=== PATIENT | male | born 1960 | race Caucasian/White ===

== ENCOUNTER 2018-10-12 00:11 | Inpatient (IN) ==
[2018-10-12] MEDS ORDERED: MoRPHine SULFATE 10 MG/ML CARP/VIAL IV STA (00:42)
[2018-10-12] MEDS ORDERED: ONDANSETRON INJ 2 MG/ML 2 ML VIAL IV STA (00:42)
[2018-10-12] MEDS ORDERED: SODIUM CHLORIDE 0.9% 1000ML 1,000 ML IV SCH (00:45)
[2018-10-12 00:55] LABS: Basophils # (auto) 0.05 K/uL (0-0.2); Basophils % (auto) 0.3 %; Eosinophils % (auto) 1.4 %; Hematocrit (blood only) 41.4 % (42-52); Hemoglobin 14.1 g/dL (14.0-18.0); Immature Granulocytes # (auto) 0.06 K/uL (0.00-0.02); Immature Granulocytes % (auto) 0.4 %; Lymphocytes # (auto) 2.67 K/uL (1.2-3.4); Lymphocytes % (auto) 18.7 %; Mean Corpuscular Hgb Conc 34.1 g/dL (32-36); Mean Corpuscular Volume 84.1 fL (80-100); Mean Platelet Volume 9.3 fL (7.4-10.4); Monocytes # (auto) 0.98 K/uL (0.11-0.59); Monocytes % (auto) 6.8 %; Neutrophils # (auto) 10.35 K/uL (1.4-6.5); Neutrophils % (auto) 72.4 %; Platelet Count 274 K/uL (130-400); RDW Coefficient of Variation 14.6 % (11.5-14.5); Red Blood Count 4.92 M/uL (4.7-6.1); White Blood Count 14.31 K/uL (4.8-10.8)
[2018-10-12 01:02] LABS: Appearance Urine Clear (Clear); Bacteria Urine Automated Negative (Negative); Bilirubin Urine Negative (Negative); Blood Urine 3+ (Negative); Cast Urine Automated 0 /lpf (0-5); Color Urine Yellow; Epithelial Cell Urine Auto 0-5 /lpf (0-5); Glucose Urine UA Negative (Negative); Ketones Urine Negative (Negative); Leukocyte Esterase Urine Negative (Negative); Nitrite Urine Negative (Negative); Protein Urine Negative (Negative); RBC Urine Automated >30 /hpf (0-4); Specific Gravity Urine 1.017 (1.000-1.030); Urobilinogen Urine Negative (Negative); pH Urine 7.5 (4.5-7.5)
[2018-10-12 01:07] LABS: Albumin Level 3.6 gm/dl (3.4-5.0); BUN Creatinine Ratio 14.5 (10-20); Creatinine Clr Calc Pharmacy 59.4 ml/min; Est GFR (Non-African American) 61.3; Potassium 3.8 mmol/L (3.5-5.1)
[2018-10-12 01:09] LABS: Bilirubin,Total 0.2 mg/dl (0.2-1); Globulin 3.6 gm/dl (2.5-4.0); Total Protein 7.2 gm/dl (6.4-8.2)
--- NOTE | 2018-10-12 01:22 | Emergency Department Note ---
History of Present Illness General Chief complaint: Kidney Stone Stated complaint: kidney stone Source: patient Mode of arrival: ambulatory Limitations: no limitations History of Present Illness Maximum Pain Intensity: 10 This patient is a 58-year-old male who presents to the emergency department complaining of right flank pain. The patient states that he was seen here 2 days ago and was diagnosed with a right-sided kidney stone. He states that since then, he has been unable to keep his pain and nausea medications down. He states that his pain is worse now than it was when he was initially seen here. He rates his discomfort a 10/10. He states it is worse with palpation of the right kidney area. He has had some increased urgency and frequency of urination. He states that he has been urinating small amounts very frequently. He has not had any fevers, but does note that he has had some sweating and hot flashes. He does have a history of kidney stones and has seen Dr. Lance in the past. Home Medications Home Medications Medication Instructions Recorded Confirmed Type hydrocodone-acetaminophen 1 tab PO Q6H PRN #10 tab 10/09/18 10/12/18 Rx tamsulosin [Flomax] 0.4 mg PO DAILY #10 cap 10/09/18 10/12/18 Rx Allergies Allergy/AdvReac Type Severity Reaction Status Date / Time No Known Allergies Allergy Unverified 10/12/18 02:27 Past Med/Surg History Medical History Kidney stone Heart murmur Recent findings. Denies having symptoms from it History of palpitations Knee arthropathy Surgical History H/O lithotripsy History of ankle surgery S/P arthroscopic knee surgery Left Family History Other Family history of kidney stones Social History Preferred Language: Irish Communication Ability: Effective Contract Management Specialist Required: No Beliefs That Will Affect Care: None Current Living Situation: Spouse Other Information That Helps Us Care for You: No Feels Safe at Home: Yes Safety Concerns: Feels Safe At This Time Smoking Status: Current every day smoker Tobacco Type: cigarettes Cigarettes Per Day: 1/2 ppd x 40 years Do You Dip or Chew Tobacco: No Smoking End Date: Quit 10 years ago Tobacco Cessation Education Requested by Patient: No Hx Alcohol Use: No Hx Substance Use: No Review of Systems A total of 10 systems reviewed and were otherwise negative Physical Exam Vital Signs Vital Signs - 24 hr 10/12/18 03:50 10/12/18 04:35 10/12/18 05:20 Temperature 37.0 C Temperature Source Oral Pulse Rate 79 Pulse Rate [Apical] Pulse Rate [Bilateral Finger] 61 55 L Pulse Rate [Left Finger] Pulse Rhythm [Apical] Pulse Rhythm [Bilateral Finger] Regular Pulse Rhythm [Left Finger] Pulse Strength [Left Finger] Respiratory Rate 16 18 16 Respiratory Effort / Characteristics Non-Labored Non-Labored Respiratory Depth Normal Normal Respiratory Pattern Blood Pressure 140/49 L Blood Pressure [Left Arm] Blood Pressure [Right Arm] 146/85 H 149/82 H Blood Pressure Mean [Left Arm] Blood Pressure Mean [Right Arm] 105 104 Blood Pressure Position [Left Arm] Blood Pressure Position [Right Arm] Pulse Oximetry 94 95 98 Oxygen Delivery Method Room Air Room Air Oxygen Flow Rate 10/12/18 05:39 10/12/18 07:51 10/12/18 10:23 Temperature 36.5 C 36.5 C 36.7 C Temperature Source Oral Oral Temporal Artery Scan Pulse Rate Pulse Rate [Apical] 72 Pulse Rate [Bilateral Finger] Pulse Rate [Left Finger] 57 L 61 Pulse Rhythm [Apical] Regular Pulse Rhythm [Bilateral Finger] Pulse Rhythm [Left Finger] Pulse Strength [Left Finger] Respiratory Rate 18 16 16 Respiratory Effort / Characteristics Non-Labored Spontaneous Non-Labored Spontaneous Respiratory Depth Normal Normal Normal Respiratory Pattern Regular Regular Blood Pressure Blood Pressure [Left Arm] 134/79 Blood Pressure [Right Arm] 155/90 H 137/83 Blood Pressure Mean [Left Arm] 97 Blood Pressure Mean [Right Arm] 111 101 Blood Pressure Position [Left Arm] Semi-fowlers Blood Pressure Position [Right Arm] Lying Lying Pulse Oximetry 96 95 99 Oxygen Delivery Method Room Air Room Air Oxymask Oxygen Flow Rate 6 10/12/18 10:30 10/12/18 10:40 10/12/18 10:50 Temperature 36.7 C Temperature Source Temporal Artery Scan Pulse Rate Pulse Rate [Apical] 65 74 68 Pulse Rate [Bilateral Finger] Pulse Rate [Left Finger] Pulse Rhythm [Apical] Regular Regular Regular Pulse Rhythm [Bilateral Finger] Pulse Rhythm [Left Finger] Pulse Strength [Left Finger] Respiratory Rate 16 15 20 Respiratory Effort / Characteristics Non-Labored Spontaneous Non-Labored Spontaneous Non-Labored Spontaneous Respiratory Depth Normal Normal Normal Respiratory Pattern Regular Regular Regular Blood Pressure Blood Pressure [Left Arm] 136/97 136/84 144/89 H Blood Pressure [Right Arm] Blood Pressure Mean [Left Arm] 110 101 107 Blood Pressure Mean [Right Arm] Blood Pressure Position [Left Arm] Semi-fowlers Semi-fowlers Semi-fowlers Blood Pressure Position [Right Arm] Pulse Oximetry 96 99 93 Oxygen Delivery Method Oxymask Oxymask Nasal Cannula Oxygen Flow Rate 6 6 2 10/12/18 11:10 10/12/18 12:22 10/12/18 13:09 Temperature 36.8 C 36.8 C Temperature Source Oral Oral Pulse Rate Pulse Rate [Apical] Pulse Rate [Bilateral Finger] Pulse Rate [Left Finger] 58 L 60 58 L Pulse Rhythm [Apical] Pulse Rhythm [Bilateral Finger] Pulse Rhythm [Left Finger] Regular Pulse Strength [Left Finger] Normal Respiratory Rate 16 18 18 Respiratory Effort / Characteristics Non-Labored Respiratory Depth Normal Respiratory Pattern Regular Blood Pressure Blood Pressure [Left Arm] 143/78 H 155/83 H 157/87 H Blood Pressure [Right Arm] Blood Pressure Mean [Left Arm] 99 107 110 Blood Pressure Mean [Right Arm] Blood Pressure Position [Left Arm] Lying Blood Pressure Position [Right Arm] Pulse Oximetry 93 96 96 Oxygen Delivery Method Nasal Cannula Room Air Oxygen Flow Rate 2 10/12/18 14:12 Temperature 36.8 C Temperature Source Pulse Rate Pulse Rate [Apical] Pulse Rate [Bilateral Finger] Pulse Rate [Left Finger] 58 L Pulse Rhythm [Apical] Pulse Rhythm [Bilateral Finger] Pulse Rhythm [Left Finger] Pulse Strength [Left Finger] Respiratory Rate 18 Respiratory Effort / Characteristics Respiratory Depth Respiratory Pattern Blood Pressure Blood Pressure [Left Arm] 157/87 H Blood Pressure [Right Arm] Blood Pressure Mean [Left Arm] Blood Pressure Mean [Right Arm] Blood Pressure Position [Left Arm] Blood Pressure Position [Right Arm] Pulse Oximetry 96 Oxygen Delivery Method Oxygen Flow Rate VITALS: Vitals are noted on the nurse's note and reviewed by myself. Vital signs stable. GENERAL: This is a 58-year-old male, in no acute distress, nondiaphoretic, well- developed well-nourished. SKIN: The skin was without rashes. EYES: Pupils equal round and reactive to light and accommodation. MOUTH: Mucous membranes moist. Tonsils are not enlarged. Pharynx without erythema or exudate. NECK: Supple without nuchal rigidity. No lymphadenopathy. HEART: Regular rate and rhythm. Grade 2/6 systolic murmur. LUNGS: Clear to auscultation bilaterally without wheezes, rales or rhonchi. No retractions or accessory muscle use. ABDOMEN: Positive bowel sounds x 4. Soft, nondistended. There is no abdominal tenderness to palpation. Right CVA tenderness. NEURO: Patient was alert and oriented to person place and time. Course Reevaluation(s) Reevaluation #1: Patient was reevaluated and states that his pain is starting to return. An additional dose of pain medicine was ordered for the patient. He is agreeable to admission. Administered Medications Discontinued Medications Hydromorphone HCl (Dilaudid) 0.5 mg IV NOW STA Stop: 10/12/18 02:25 Last Admin: 10/12/18 02:30 Dose: 0.5 mg Documented by: [id number] Hydromorphone HCl (Dilaudid) 0.5 mg IV Q4H PRN PRN Reason: Pain Stop: 10/26/18 05:27 Last Admin: 10/12/18 12:19 Dose: 0.5 mg Documented by: [id number] Admin: 10/12/18 07:41 Dose: 0.5 mg Documented by: [id number] Sodium Chloride (Nss 1000ml) 1,000 mls @ 999 mls/hr IV .Q1H1M POLINA Stop: 10/12/18 01:45 Last Infusion: 10/12/18 01:58 Dose: 0 mls/hr Documented by: [id number] Admin: 10/12/18 00:56 Dose: 999 mls/hr Documented by: [id number] Lactated Ringer's (Lr) 1,000 mls @ 100 mls/hr IV .Q10H POLINA Stop: 11/11/18 05:27 Last Admin: 10/12/18 05:53 Dose: 100 mls/hr Documented by: [id number] Cefazolin Sodium (Ancef 2000mg) 2,000 mg in 15 mls @ 3.75 mls/min IV ONCE ONE Stop: 10/12/18 09:59 Last Admin: 10/12/18 09:51 Dose: 3.75 mls/min Documented by: [id number] Iothalamate Meglumine (Cysto-Conray Ii) 5 ml INSTIL ONCE POLINA Stop: 11/11/18 10:14 Last Admin: 10/12/18 09:54 Dose: 5 ml Documented by: [id number] Morphine Sulfate (Morphine Sulfate) 6 mg IV NOW STA Stop: 10/12/18 00:43 Last Admin: 10/12/18 00:56 Dose: 6 mg Documented by: [id number] Ondansetron HCl (Zofran) 4 mg IV NOW STA Stop: 10/12/18 00:43 Last Admin: 10/12/18 00:56 Dose: 4 mg Documented by: [id number] Medical Decision Making Differential Diagnosis Differential diagnosis includes kidney stone, pyelonephritis, infected stone, acute kidney injury, among others. Medical Records Attestation: I reviewed the patient's medical records. Home Medications Current Medication List: was personally reviewed by me Laboratory Data Attestation: I reviewed the patient's lab results. Result diagrams: 10/12/18 00:37 10/12/18 00:37 Lab Results 10/12/18 10/12/18 10/12/18 Range/Units 00:37 00:37 00:37 WBC 14.31 H (4.8-10.8) K/uL RBC 4.92 (4.7-6.1) M/uL Hgb 14.1 (14.0-18.0) g/dL Hct 41.4 L (42-52) % MCV 84.1 (80-100) fL MCH 28.7 (25-34) pg MCHC 34.1 (32-36) g/dL RDW Std Deviation 45.0 (36.4-46.3) fL RDW Coeff of [place] 14.6 H (11.5-14.5) % Plt Count 274 (130-400) K/uL MPV 9.3 (7.4-10.4) fL Immature Gran % (Auto) 0.4 % Neut % (Auto) 72.4 % Lymph % (Auto) 18.7 % [place] % (Auto) 6.8 % Eos % (Auto) 1.4 % Baso % (Auto) 0.3 % Immature Gran # (Auto) 0.06 H (0.00-0.02) K/uL Neut # (Auto) 10.35 H (1.4-6.5) K/uL Lymph # (Auto) 2.67 (1.2-3.4) K/uL [place] # (Auto) 0.98 H (0.11-0.59) K/uL Eos # (Auto) 0.20 (0-0.5) K/uL Baso # (Auto) 0.05 (0-0.2) K/uL Sodium 136 (136-145) mmol/L Potassium 3.8 (3.5-5.1) mmol/L Chloride 106 (98-107) mmol/L Carbon Dioxide 27 (21-32) mmol/L Anion Gap 3.0 (3-11) BUN 19 H (7-18) mg/dl Creatinine 1.28 (0.6-1.4) mg/dl Est Cr Clr Drug Dosing 59.4 ml/min Est GFR ( Amer) 71.0 Est GFR (Non-Af Amer) 61.3 BUN/Creatinine Ratio 14.5 (10-20) Glucose 126 H (70-99) mg/dl Calcium 9.0 (8.5-10.1) mg/dl Total Bilirubin 0.2 (0.2-1) mg/dl AST 13 L (15-37) U/L ALT 17 (12-78) U/L Alkaline Phosphatase 87 (45-117) U/L Total Protein 7.2 (6.4-8.2) gm/dl Albumin 3.6 (3.4-5.0) gm/dl Globulin 3.6 (2.5-4.0) gm/dl Albumin/Globulin Ratio 1.0 (0.9-2) Urine Color Yellow Urine Appearance Clear (Clear) Urine pH 7.5 (4.5-7.5) Ur Specific [place] 1.017 (1.000-1.030) Urine Protein Negative (Negative) Urine Glucose (UA) Negative (Negative) Urine Ketones Negative (Negative) Urine Blood 3+ H (Negative) Urine Nitrite Negative (Negative) Urine Bilirubin Negative (Negative) Urine Urobilinogen Negative (Negative) Ur Leukocyte Esterase Negative (Negative) Urine WBC (Auto) 1-5 (0-5) /hpf Urine RBC (Auto) >30 H (0-4) /hpf U Hyaline Cast (Auto) 0 (0-5) /lpf U Epithel Cells (Auto) 0-5 (0-5) /lpf Urine Bacteria (Auto) Negative (Negative) Imaging Data Attestation: I personally reviewed and interpreted this imaging study as follows: Radiologist's Impression: US RENAL: Impression: Hydronephrosis of the right kidney is not significantly changed from comparison CT abdomen and pelvis 10/09/2018 given differences in technique. Right renal calculus measuring up to 5 mm. Small right renal cysts. Urinary bladder is decompressed and therefore not well evaluated. Radiologist: Guillaume Beasley MD Blood Pressure Blood Pressure Findings: Elevated blood pressure Blood Pressure Disposition: elevated BP felt to be situational MDM Narrative This patient is a 58-year-old male who presents to the emergency department complaining of persistent pain from a kidney stone. Patient has not been able to keep any of his medication down at home. Ultrasound was performed and shows unchanged hydronephrosis. There is no evidence of infection in the urine. Patient does have a leukocytosis of 14,000 which may be secondary to vomiting or the stress of the situation. Patient was given IV pain medications and fluids in the emergency department. As the patient has not been able to tolerate his symptoms at home, I do feel it is reasonable to admit him for evaluation and care. The patient was agreeable to this. The case was discussed with the [facility] service for admission/observation. Impression & Plan Ureterolithiasis Discharge Plan Visit Data *Final* Discharge Date/Time: 10/12/18 05:20 Chief Complaint: Kidney Stone Stated Complaint: kidney stone ED Provider: Zaki Suarez ED Midlevel Provider: Michelle Duarte Discharge Problem: Ureterolithiasis Patient Disposition: Admitted As Inpatient Discharge Instructions Interventions: ED Discharge Assessment Last Done: 10/12/18 05:20
[2018-10-12] MEDS ORDERED: HYDROmorphone INJ 0.5 MG/0.5 ML SYR IV STA (02:24)
--- NOTE | 2018-10-12 04:14 | History & Physical Report ---
Date of Service October 12, 2018 Assessment & Plan (1) Ureterolithiasis: 58-year-old male was admitted on 12 September 2017 for right flank pain and a known right ureteral stone. Right ureterolithiasis: Uncontrolled pain as well as nausea and vomiting from the same. CT a/p non-con on 02May noted a obstructing calculus in the right UP junction along with mild right hydroureteronephrosis. 05May renal u/s (prelim read) noted renal calculus measuring up to 5 mm, small right renal cyst, with hydronephrosis not significantly changed from CT scan. - In ED, afebrile, not tachycardic, but WBC 14. UA notes RBCs without nitrates or significant WBCs. Treated with morphine and then Dilaudid, Zofran, and normal saline IVF. - Consulted urology. Will continue Dilaudid and Zofran (both as needed) for pain & nausea control. Continue IVF. Held home Flomax while NPO. Elevated creatinine: Admit Cr 1.28, up from Cr 1.08 three days prior. Present BUN 19. Provided IVF, recommend monitoring. Elevated blood pressure: As high as 183/90. Outside of his flank pain, no obvious evidence of hypertensive emergency. Patient denies any history of hypertension. Recommended monitoring and outpatient evaluation for same. Diastolic heart murmur: Unclear time of onset, however patient says he was told years ago that one of his valves does not work quite properly. Occasionally gets feeling of fluttering. EKG two days ago was sinus bradycardia, rate 59. - Ordered echocardiogram for further evaluation. Code status: Full code. Diet: N.p.o. in case of procedure later today. DVT prophy: SCDs. PT/OT: Deferred. Disbo: Admit to [facility]. (2) Elevated serum creatinine: (3) Elevated blood pressure reading: (4) Diastolic murmur: History of Present Illness Primary Care Provider: CHARLIE Christian 58-year-old male returns to the emergency department complaining of ongoing right flank pain. Of note, he was seen in the emergency department two days prior where he was diagnosed with a right-sided kidney stone by CT scan. He states that his pain is been uncontrolled at home, 10 out of 10 on pain scale on arrival, as well as some nausea and vomiting preventing him from taking pain medicine. Notes concurrent urinary urgency and increased frequency. No known fevers. He denies any anterior abdominal pain, pelvic pain, or other acute concerns. On discussion of his heart murmur, he says he was diagnosed with this for the first time two days ago. He does say that he saw cardiology (Dr. Soria) many years ago and was told that he had a valve problem. Per the patient's recolle ction, he was offered medication to help with this but he (the patient) declined at that time. He says that he does not routinely have any chest pain or shortness of breath but that on heavy exertion he does have a little bit of chest discomfort. He also notes he has gotten the feeling of fluttering for years now but has not sought interval evaluation. --- Past medical history includes prior kidney stones (perhaps six), possible cardiac valvular disease. --- Past surgical history includes lithotripsy around 2012. --- Social history includes smoking a little over 1/2 pack/day for 40 years. Denies recent alcohol use. Lives at home with his and daughter. Allergies Allergy/AdvReac Type Severity Reaction Status Date / Time No Known Allergies Allergy Unverified 10/12/18 02:27 Home Medications Home Medications Medication Instructions Recorded Confirmed Type hydrocodone-acetaminophen 1 tab PO Q6H PRN #10 tab 10/09/18 10/12/18 Rx tamsulosin [Flomax] 0.4 mg PO DAILY #10 cap 10/09/18 10/12/18 Rx Past Med/Surg History Medical History Kidney stone Heart murmur Recent findings. Denies having symptoms from it History of palpitations Knee arthropathy Surgical History H/O lithotripsy History of ankle surgery S/P arthroscopic knee surgery Left Family History Other Family history of kidney stones Social History Preferred Language: Guamanian Communication Ability: Effective Pleasure Craft Sailor Required: No Beliefs That Will Affect Care: None Current Living Situation: Spouse Other Information That Helps Us Care for You: No Feels Safe at Home: Yes Safety Concerns: Feels Safe At This Time Smoking Status: Current every day smoker Tobacco Type: cigarettes Cigarettes Per Day: 1/2 ppd x 40 years Do You Dip or Chew Tobacco: No Smoking End Date: Quit 10 years ago Tobacco Cessation Education Requested by Patient: No Hx Alcohol Use: No Hx Substance Use: No Review of Systems Review of Systems: Constitutional: Denies fevers, chills, focal weakness Eyes: Denies any visual loss or diplopia ENT: Denies any ear/nose/throat pain or difficulty speaking or swallowing Respiratory: Denies any dyspnea, cough, hemoptysis Cardiovascular: Denies any chest pain or feeling of edema Gastrointestinal: Denies any abdominal pain or diarrhea Musculoskeletal: Denies any acute extremity pains, myalgias, or focal weakness Skin: Denies any known acute rashes or lesions Neuro: Denies any headache, acute focal weakness or numbness, or difficulties with speech or swallow. Psych: Denies any recent depression or anxiety Endocrine: Denies any heat or cold intolerance. Physical Exam Physical Exam: GENERAL: Awake, alert, well-appearing, in no acute distress HENT: Normocephalic, atraumatic. EYES: Normal conjunctiva. Sclera non-icteric. NECK: Inspection normal. Non-tender. Supple and full ROM. CARDIAC: +S1S2 RRR, 3/6 holo-diastolic murmur. RESPIRATORY: Clear to auscultation. No wheezes or rales. Normal respiratory effort. GI: +BS, soft, non-distended. No tenderness to anterior abdominal palpation. No rebound or guarding. Positive right-sided CVA tenderness. EXTREMITIES: No pedal edema or calf tenderness. Moving all extremities naturally and easily. NEURO: No gross neuro deficits. Results & Data Vital Signs (Past 12 Hours) Vital Signs Temp Pulse Pulse Resp BP BP Pulse Ox 10/12/18 03:50 61 16 146/85 H 94 10/12/18 01:57 67 19 166/81 H 94 10/12/18 00:58 60 16 170/98 H 98 10/12/18 00:13 36.8 C 86 22 183/90 H 96 Laboratory Results 10/12/18 10/12/18 10/12/18 Range/Units 00:37 00:37 00:37 WBC 14.31 H (4.8-10.8) K/uL RBC 4.92 (4.7-6.1) M/uL Hgb 14.1 (14.0-18.0) g/dL Hct 41.4 L (42-52) % MCV 84.1 (80-100) fL MCH 28.7 (25-34) pg MCHC 34.1 (32-36) g/dL RDW Std Deviation 45.0 (36.4-46.3) fL RDW Coeff of [place] 14.6 H (11.5-14.5) % Plt Count 274 (130-400) K/uL MPV 9.3 (7.4-10.4) fL Immature Gran % (Auto) 0.4 % Neut % (Auto) 72.4 % Lymph % (Auto) 18.7 % [place] % (Auto) 6.8 % Eos % (Auto) 1.4 % Baso % (Auto) 0.3 % Immature Gran # (Auto) 0.06 H (0.00-0.02) K/uL Neut # (Auto) 10.35 H (1.4-6.5) K/uL Lymph # (Auto) 2.67 (1.2-3.4) K/uL [place] # (Auto) 0.98 H (0.11-0.59) K/uL Eos # (Auto) 0.20 (0-0.5) K/uL Baso # (Auto) 0.05 (0-0.2) K/uL Sodium 136 (136-145) mmol/L Potassium 3.8 (3.5-5.1) mmol/L Chloride 106 (98-107) mmol/L Carbon Dioxide 27 (21-32) mmol/L Anion Gap 3.0 (3-11) BUN 19 H (7-18) mg/dl Creatinine 1.28 (0.6-1.4) mg/dl Est Cr Clr Drug Dosing 59.4 ml/min Est GFR ( Amer) 71.0 Est GFR (Non-Af Amer) 61.3 BUN/Creatinine Ratio 14.5 (10-20) Glucose 126 H (70-99) mg/dl Calcium 9.0 (8.5-10.1) mg/dl Total Bilirubin 0.2 (0.2-1) mg/dl AST 13 L (15-37) U/L ALT 17 (12-78) U/L Alkaline Phosphatase 87 (45-117) U/L Total Protein 7.2 (6.4-8.2) gm/dl Albumin 3.6 (3.4-5.0) gm/dl Globulin 3.6 (2.5-4.0) gm/dl Albumin/Globulin Ratio 1.0 (0.9-2) Urine Color Yellow Urine Appearance Clear (Clear) Urine pH 7.5 (4.5-7.5) Ur Specific [place] 1.017 (1.000-1.030) Urine Protein Negative (Negative) Urine Glucose (UA) Negative (Negative) Urine Ketones Negative (Negative) Urine Blood 3+ H (Negative) Urine Nitrite Negative (Negative) Urine Bilirubin Negative (Negative) Urine Urobilinogen Negative (Negative) Ur Leukocyte Esterase Negative (Negative) Urine WBC (Auto) 1-5 (0-5) /hpf Urine RBC (Auto) >30 H (0-4) /hpf U Hyaline Cast (Auto) 0 (0-5) /lpf U Epithel Cells (Auto) 0-5 (0-5) /lpf Urine Bacteria (Auto) Negative (Negative) Medications Administered Discontinued Medications Hydromorphone HCl (Dilaudid) 0.5 mg IV NOW STA Stop: 10/12/18 02:25 Last Admin: 10/12/18 02:30 Dose: 0.5 mg Documented by: [id number] Sodium Chloride (Nss 1000ml) 1,000 mls @ 999 mls/hr IV .Q1H1M POLINA Stop: 10/12/18 01:45 Last Infusion: 10/12/18 01:58 Dose: 0 mls/hr Documented by: [id number] Admin: 10/12/18 00:56 Dose: 999 mls/hr Documented by: [id number] Morphine Sulfate (Morphine Sulfate) 6 mg IV NOW STA Stop: 10/12/18 00:43 Last Admin: 10/12/18 00:56 Dose: 6 mg Documented by: [id number] Ondansetron HCl (Zofran) 4 mg IV NOW STA Stop: 10/12/18 00:43 Last Admin: 10/12/18 00:56 Dose: 4 mg Documented by: [id number] Code Status & VTE Plan Code Status Full code VTE Prophylaxis Plan VTE Prophylaxis will be ordered: Yes Supervising Physician Co-Signing Physician Notes Attending addendum: I have physically seen this patient, have supervised the medical residents activities, and agree with the H&P unless as otherwise noted. Assessment and Plan: 5 mm right ureteropelvic junction stone/right hydronephrosis- N.p.o. Continue IV fluids. Dilaudid 0.5 mg IV every 3 hours as needed severe pain. Acetaminophen 1000 mg IV every 8 hours PRN mild pain or temperature. Zofran 4 mg IV every 6 hours as needed. Consult urology. Remainder of orders and notations as noted. Resident Activity Tracking Resident Involvement: Resident Care Provided Care Provided: Adult [facility] Medicine
[2018-10-12] MEDS ORDERED: ONDANSETRON INJ 2 MG/ML 2 ML VIAL IV PRN ×2 (05:28→09:15)
[2018-10-12] MEDS ORDERED: LACTATED RINGER'S 1,000 ML IV SCH (05:28)
--- NOTE | 2018-10-12 07:32 | Anesthesiology Consultation ---
Date of Service October 12, 2018 Assessment & Plan Chart Review Chart Review: Acceptable Risk for Surgery (Urgent) and Patient NOT seen in Pre Admission Testing Consults Requested none ASA [id number] Proposed Anesthesia Anesthesia Type: General Risk / Benefits Reviewed With: PT / POA / Parent / Guardian, Accepts Plan and Informed Consent Obtained History Surgery Operation Date: 10/12/18 11:00 Proposed Procedures p Laser Lithotripsy Maikel Perry MD Height/Weight Height: 1.63 m Weight: 78.2 kg Allergies Allergy/AdvReac Type Severity Reaction Status Date / Time No Known Allergies Allergy Unverified 10/12/18 02:27 Medications Home Medications Medication Instructions Recorded Confirmed Last Taken hydrocodone-acetaminophen 1 tab PO Q6H PRN #10 tab 10/09/18 10/12/18 10/11/18 tamsulosin [Flomax] 0.4 mg PO DAILY #10 cap 10/09/18 10/12/18 10/11/18 Active Medications Generic Name Dose Route Start Last Admin Trade Name Freq PRN Reason Stop Dose Admin Hydromorphone HCl 0.5 mg 10/12/18 05:28 10/12/18 07:41 Dilaudid IV 10/26/18 05:27 0.5 mg Q4H PRN Administration Pain Lactated Ringer's 1,000 mls @ 100 mls/hr 10/12/18 05:28 10/12/18 05:53 Lr IV 11/11/18 05:27 100 mls/hr .Q10H POLINA Administration NPO Date Last Intake of Fluids: 10/12/18 Time Last Intake of Fluids: 03:00 Last Intake of Fluids Comment: Ice chips Date Last Intake of Solids: 10/11/18 Time Last Intake of Solids: 21:00 Past Medical History Medical History Kidney stone Heart murmur Recent findings. Denies having symptoms from it History of palpitations Knee arthropathy Exercise / Class Metabolic Activity II 4-5 Yardwork/Stairs/Walk up hill Past Family History Family History Other Family history of kidney stones Past Surgical History Surgical History H/O lithotripsy History of ankle surgery S/P arthroscopic knee surgery Left Past Anesthesia History No Hx of Anesthesia Complications and No Family Hx of Anesthesia Complications History of PONV No Hx of PONV and No Hx of Motion Sickness Social History Smoking Status: Current every day smoker tobacco type: cigarettes Smoking cigarettes per day: 1/2 ppd x 40 years Do You Dip or Chew Tobacco: No Smoking End Date: Quit 10 years ago Hx Alcohol Use: No Hx Substance Use: No Review of Systems Respiratory: no dyspnea and no dyspnea on exertion Cardiovascular: no chest pain and no syncope Gastrointestinal: + nausea and + vomiting; no heartburn Physical Exam Vital Signs Last Vital Signs Temp 36.5 C 10/12/18 07:51 Pulse 61 10/12/18 07:51 Resp 16 10/12/18 07:51 BP 137/83 10/12/18 07:51 Pulse Ox 95 10/12/18 07:51 ENMT Mouth: no TMJ abnormality and no TMJ clicking Thyromental Distance: > or= 3.5 Finger Breadths Mallampati Class: III Mouth / Teeth: 1. Black discoloration Neck normal visual inspection; neck extension not limited Respiratory Auscultation: lungs clear to auscultation bilaterally Cardiovascular Rate/Rhythm: regular rate and regular rhythm Psychiatric Orientation: alert and oriented x 3 Testing Electrocardiogram Date: 10/09/18 Findings: + SB @ (59 bpm) Sinus bradycardia Otherwise normal ECG When compared with ECG of 21-OCT-2009 20:16, No significant change was found Confirmed by Jeronimo Gray ([id number]) on 10/09/2018 10:13:32 PM Laboratory Results 10/12/18 00:37 10/12/18 00:37 Urine Color Yellow 10/12/18 00:37 Urine Appearance Clear (Clear) 10/12/18 00:37 Urine pH 7.5 (4.5-7.5) 10/12/18 00:37 Ur Specific [place] 1.017 (1.000-1.030) 10/12/18 00:37 Urine Protein Negative (Negative) 10/12/18 00:37 Urine Glucose (UA) Negative (Negative) 10/12/18 00:37 Urine Ketones Negative (Negative) 10/12/18 00:37 Urine Nitrite Negative (Negative) 10/12/18 00:37 Ur Leukocyte Esterase Negative (Negative) 10/12/18 00:37 Urine WBC (Auto) 1-5 /hpf (0-5) 10/12/18 00:37 Urine RBC (Auto) >30 /hpf (0-4) H 10/12/18 00:37 U Hyaline Cast (Auto) 0 /lpf (0-5) 10/12/18 00:37 U Epithel Cells (Auto) 0-5 /lpf (0-5) 10/12/18 00:37 Urine Bacteria (Auto) Negative (Negative) 10/12/18 00:37
[2018-10-12] MEDS: HYDROmorphone INJ 0.5 MG/0.5 ML SYR IV PRN ×2 (07:41→12:19)
--- NOTE | 2018-10-12 07:42 | Ultrasound Report ---
ULTRASOUND KIDNEYS AND BLADDER CLINICAL HISTORY: Right flank pain. COMPARISON STUDY: Abdominal CT dated 10/09/2018. TECHNIQUE: Real-time, grayscale, and color flow sonography of the kidneys and bladder is performed. I mages are reviewed in the transverse and longitudinal planes. FINDINGS: Kidneys: The kidneys are normal in size and echotexture. The right kidney measures 11.8 cm in length and the left kidney measures 11.0 cm in length. There is mild to moderate right-sided hydronephrosis. No left hydronephrosis is seen. A 7 mm nonobstructing calculus is present in the right upper pole. A subcentimeter cyst is noted on the right. There is no sonographic evidence of contour deforming juanita l mass lesion. A small focus of cortical scarring is incidentally noted in the left kidney. No perine phric fluid is identified. Bladder: The prostate gland is enlarged and heterogeneous noting median lobe hypertrophy. The bladder is decompressed and suboptimally assessed. The bladder wall appears thickened and trabeculated indic ating chronic outlet obstruction. Ureteral jets were not seen. IMPRESSION: 1. There is mild to moderate right sided hydronephrosis. This likely corresponds to the patient's kno wn obstructing distal right ureteral stone. The obstructing stone was not seen by ultrasound. 2. There is no left-sided hydronephrosis. 3. There is an additional nonobstructing right renal calculus. 4. Prostatomegaly with evidence of chronic bladder obstruction. Electronically signed by: Ben Brar M.D. 10/12/2018 7:41 AM
--- NOTE | 2018-10-12 08:15 | Urology Consultation ---
Date of Consultation October 12, 2018 Assessment & Plan (1) Ureterolithiasis: 5mm right distal UVJ stone. [place]. Elevated Cr and WBC. Persistent pain. Will plan to take to the OR for cysto, right Uscope, laser litho, stent placement. (2) Renal colic: History of Present Illness Attending Physician: Ramila Cox DO 58 y/o Male with hx of kidney stones. Presented to the ED with right sided flank pain. 03/19. Radiated around to his groin. He was in the ED several days ago with similar complaints and was discharged home with a trial of passage. His pain persisted. Returned to the ED for further evaluation. He also reports urge and freq. No hem. No dys. Nausea. His pain continued despite medication. Cr and WBC slightly elevated. CT Scan from 10/09/18 showed a 5mm right UVJ stone with hydro. SOPHIE from 10/12/18 confirmed persistence of hydro on the right side. Allergies Allergy/AdvReac Type Severity Reaction Status Date / Time No Known Allergies Allergy Unverified 10/12/18 02:27 Home Medications Home Medications Medication Instructions Recorded Confirmed Type hydrocodone-acetaminophen 1 tab PO Q6H PRN #10 tab 10/09/18 10/12/18 Rx tamsulosin [Flomax] 0.4 mg PO DAILY #10 cap 10/09/18 10/12/18 Rx Patient History Medical History Kidney stone Heart murmur Knee arthropathy Surgical History H/O lithotripsy History of ankle surgery Family History Other Family history of kidney stones Social History Preferred Language: [place] Communication Ability: Effective Olive Knocker Required: No Beliefs That Will Affect Care: None Current Living Situation: Spouse Other Information That Helps Us Care for You: No Feels Safe at Home: Yes Safety Concerns: Feels Safe At This Time Smoking Status: Current every day smoker Tobacco Type: cigarettes Cigarettes Per Day: 10 Do You Dip or Chew Tobacco: No Tobacco Cessation Education Requested by Patient: No Hx Alcohol Use: No Hx Substance Use: No Review of Systems Review of Systems: All systems reviewed & are unremarkable except as noted in HPI & below Physical Exam Constitutional: WD/WN, vitals as above Eyes: PERRL, conjunctivae normal, anicteric sclerae Neck: trachea midline, no thyromegaly Respiratory: normal respiratory effort, lungs clear to auscultation Cardiovascular: RRR, no murmur, no edema Gastrointestinal (Abdomen): normal bowel sounds, soft, nontender, no hepatosplenomegaly Musculoskeletal: no cyanosis or clubbing, extremities motor strength 5/5 Skin: no rashes, warm and dry Neurologic: patellar DTR's 2+ bilat, sensation intact Psychiatric: A+Ox3, euthymic affect Genitourinary: + CVA tenderness Lymphatic: no cervical or axillary lymphadenopathy Results & Data Vital Signs (Past 12 Hours) Vital Signs Temp Pulse Pulse Pulse Resp BP BP 10/12/18 07:51 36.5 C 61 16 137/83 10/12/18 05:39 36.5 C 57 L 18 155/90 H 10/12/18 05:20 79 16 140/49 L 10/12/18 04:35 37.0 C 55 L 18 149/82 H 10/12/18 03:50 61 16 146/85 H 10/12/18 01:57 67 19 166/81 H 10/12/18 00:58 60 16 170/98 H 10/12/18 00:13 36.8 C 86 22 183/90 H Pulse Ox 10/12/18 07:51 95 10/12/18 05:39 96 10/12/18 05:20 98 10/12/18 04:35 95 10/12/18 03:50 94 10/12/18 01:57 94 10/12/18 00:58 98 10/12/18 00:13 96
[2018-10-12] MEDS ORDERED: MIDAZOLAM HCL 1 MG/ML 2ML VIAL ONE (08:57)
[2018-10-12] MEDS ORDERED: fentaNYL citrate 100 MCG/2 ML VIAL ONE (08:57)
[2018-10-12] MEDS ORDERED: HYDROmorphone INJ 1 MG/ML SYRINGE IV PRN (09:15)
[2018-10-12] MEDS ORDERED: PROMETHAZINE HCL 12.5 MG in SODIUM CHLORIDE 0.9% 50 ML IV PRN (09:15)
[2018-10-12] MEDS ORDERED: ATROPINE SULFATE 0.1 MG/ML 10ML SYR IV PRN (09:15)
[2018-10-12] MEDS ORDERED: fentaNYL citrate 100 MCG/2 ML VIAL IV PRN (09:15)
[2018-10-12] MEDS ORDERED: ePHEDrine sulfate 50 MG/ML AMP IV PRN (09:15)
[2018-10-12] MEDS ORDERED: PHENYLEPHRINE 100MCG/ML 5ML SYR IV PRN (09:15)
[2018-10-12] MEDS ORDERED: CEFAZOLIN 2000MG 2,000 MG/15 ML SYR IV ONE (09:56)
[2018-10-12] MEDS ORDERED: PROPOFOL IV EMULSION 10 MG/ML 20 ML VIAL IV ONE (10:13)
[2018-10-12] MEDS ORDERED: DEXAMETHASONE SOD INJ 4 MG/ML VIAL ONE (10:13)
[2018-10-12] MEDS ORDERED: ONDANSETRON INJ 2 MG/ML 2 ML VIAL ONE (10:13)
[2018-10-12] MEDS ORDERED: LIDOCAINE HCL 2% 2 ML VIAL/AMP(20MG/ML) INFIL ONE (10:13)
[2018-10-12] MEDS ORDERED: SUCCINYLCHOLINE CHLORIDE 20 MG/ML 10 ML VIAL ONE (10:13)
[2018-10-12] MEDS ORDERED: KETOROLAC 30 MG/ML VIAL ONE (10:13)
[2018-10-12] MEDS ORDERED: IOTHALAMATE MEGLUMINE II 17.2% 250 ML VIAL INSTIL SCH (10:15)
--- NOTE | 2018-10-12 10:15 | Fluoroscopy Report ---
INTRAOPERATIVE RADIOGRAPHS CLINICAL HISTORY: Right-sided stone extraction. Fluoroscopy time: 3 seconds. FINDINGS: 2 spot fluoroscopic images of the right lower abdomen are correlated with abdominal CT date d 10/09/2018. Both images show a catheter in the right ureter. A lithotripsy device is seen on the firs t image. IMPRESSION: Intraoperative images from a right-sided ureteral stone extraction as above. See operativ e report for detailed findings. Electronically signed by: Bne Brar M.D. 10/12/2018 10:13 AM
--- NOTE | 2018-10-12 10:36 | Post Operative Brief Note ---
Immediate Post Op Note v1 Date of Surgery October 12, 2018 Pre & Post Diagnosis Operation Date: 10/12/18 11:00 Pre-Op Diagnosis: Right Ureteral Stone Post-Op Diagnosis: Right Ureteral Stone Procedure Operation Date: 10/12/18 11:00 Actual Procedures p Cystoscopy,Right Retrograde, Right Ureterscopy with Stone Extraction(Right) - David Perry MD Surgeon David Perry MD Planer Offbearer None Estimated Blood Loss 0 Findings Consistent with Post-Op Diagnosis
--- NOTE | 2018-10-12 11:34 | Anesthesiology Progress Note ---
Date of Service October 12, 2018 Anesthesia Post Procedure Vital Signs Vital Signs: Temp Pulse Pulse Pulse Pulse Resp BP 10/12/18 10:50 36.7 C 68 20 10/12/18 10:40 74 15 10/12/18 10:30 65 16 10/12/18 10:23 36.7 C 72 16 10/12/18 07:51 36.5 C 61 16 10/12/18 05:39 36.5 C 57 L 18 10/12/18 05:20 79 16 140/49 L 10/12/18 04:35 37.0 C 55 L 18 10/12/18 03:50 61 16 10/12/18 01:57 67 19 10/12/18 00:58 60 16 10/12/18 00:13 36.8 C 86 22 183/90 H BP BP Pulse Ox 10/12/18 10:50 144/89 H 93 10/12/18 10:40 136/84 99 10/12/18 10:30 136/97 96 10/12/18 10:23 134/79 99 10/12/18 07:51 137/83 95 10/12/18 05:39 155/90 H 96 10/12/18 05:20 98 10/12/18 04:35 149/82 H 95 10/12/18 03:50 146/85 H 94 10/12/18 01:57 166/81 H 94 10/12/18 00:58 170/98 H 98 10/12/18 00:13 96 Pain Intensity Right Flank: Pain Intensity: 9 Transfer of Care Handoff Completed per policy Notes Mental Status: alert / awake / arousable Patient Amnestic to Procedure: Yes Nausea / Vomiting: adequately controlled Pain: adequately controlled Airway Patency, RR, SpO2: stable & adequate BP & HR: stable & adequate Hydration State: stable & adequate Anesthetic Complications: no major complications apparent
--- NOTE | 2018-10-12 14:12 | Discharge Summary ---
Date of Service October 12, 2018 Admission HPI Per Admitting Provider 58-year-old male returns to the emergency department complaining of ongoing right flank pain. Of note, he was seen in the emergency department two days prior where he was diagnosed with a right-sided kidney stone by CT scan. He states that his pain is been uncontrolled at home, 10 out of 10 on pain scale on arrival, as well as some nausea and vomiting preventing him from taking pain medicine. Notes concurrent urinary urgency and increased frequency. No known fevers. He denies any anterior abdominal pain, pelvic pain, or other acute concerns. On discussion of his heart murmur, he says he was diagnosed with this for the first time two days ago. He does say that he saw cardiology (Dr. Soria) many years ago and was told that he had a valve problem. Per the patient's recollection, he was offered medication to help with this but he (the patient) declined at that time. He says that he does not routinely have any chest pain or shortness of breath but that on heavy exertion he does have a little bit of chest discomfort. He also notes he has gotten the feeling of fluttering for years now but has not sought interval evaluation. --- Past medical history includes prior kidney stones (perhaps six), possible cardiac valvular disease. --- Past surgical history includes lithotripsy around 2012. --- Social history includes smoking a little over 1/2 pack/day for 40 years. Denies recent alcohol use. Lives at home with his and daughter. Principal Diagnosis Pt is doing well s/p lithotripsy. He still has R sided flank pain. Is awaiting PO. Pt denies fever, SOB, chest pain, abd pain, n/v/c/d, LE pain or swelling. Called by nursing stating that urology has said that pt can be d/c'd if he feels like going home. Nursing discussed with pt. He tolerated PO without issue. He has norco at home and feels that this will suffice for his pain control. Discharge Exam Constitutional WD/WN, vitals as above Eyes normal visual mulligan by confrontation and + anicteric sclerae Neck normal visual inspection and trachea midline Respiratory normal respiratory effort, lungs clear to auscultation Cardiovascular Rate/Rhythm: regular rate and regular rhythm Gastrointestinal (Abdomen) Inspection/Auscultation: abdomen not distended Percussion/Palpation: abdomen soft; abdomen nontender Musculoskeletal Head/Neck/Chest: normocephalic and head atraumatic Skin no rashes, warm and dry Neurologic awake; not confused Speech / Cognition: normal speech Psychiatric A+Ox3, euthymic affect Discharge Data Allergies Allergy/AdvReac Type Severity Reaction Status Date / Time No Known Allergies Allergy Unverified 10/12/18 02:27 Consultations 10/12/18 02:24 ED Decision to Admit Stat 10/12/18 05:28 Consult Urology Routine Procedures Performed Operation Date: 10/12/18 11:00 Actual Procedures p Cystoscopy,Right Retrograde, Right Ureterscopy with Stone Extraction(Right) - David Perry MD Ordered Studies 10/12/18 00:42 US renal/blad retro comp Urgent 10/12/18 08:15 FL retrograde includes kub Routine Hospital Course (1) Ureterolithiasis: (1) Ureterolithiasis: 58-year-old male was admitted on 12 September 2017 for right flank pain and a known right ureteral stone. Right ureterolithiasis: Uncontrolled pain as well as nausea and vomiting from the same. CT a/p non-con on noted a obstructing calculus in the right UP junction along with mild right hydroureteronephrosis. 05May renal u/s (prelim read) noted renal calculus measuring up to 5 mm, small right renal cyst, with hydronephrosis not significantly changed from CT scan. - In ED, afebrile, not tachycardic, but WBC 14. UA notes RBCs without nitrates or significant WBCs. Treated with morphine and then Dilaudid, Zofran, and normal saline IVF. Continue IVF. Held home Flomax while NPO. Pt underwent lithotripsy on 10/12 with urology service Feeling better s/p procedure and will d/c to home States he still has about 10 norco left and feels that this will suffice for his pain management Elevated creatinine: Admit Cr 1.28, up from Cr 1.08 three days prior. Provided IVF and WNL on d/c Elevated blood pressure: As high as 183/90. Outside of his flank pain, no obvious evidence of hypertensive emergency. Patient denies any history of hypertension. Recommended monitoring and outpatient evaluation for same. Diastolic heart murmur: Unclear time of onset, however patient says he was told years ago that one of his valves does not work quite properly. Occasionally gets feeling of fluttering. EKG two days ago was sinus bradycardia, rate 59. - ECHO done but read pending f/u cardiology Total Time Total Time Spent Total Time Spent (In Minutes): > 30 minutes Discharge Plan Discharge Items Patient Disposition: Home - Self-Care Reason For Visit: RIGHT URETEROLITHIASIS, UNCONTROLLED PAIN Discharge Diagnosis: R ureterolithiasis Discharge Goals: Decrease discomfort Activity: Resume your previous activity Non-emergency contact: Urologist Call non-emergency contact if: you have any medication questions, your symptoms worsen and your pain is not controlled Follow-up/Referrals: Lauren Warren CRNP [Primary Care Provider] - Diet: Regular Addtl Provider Instructions: Follow up with PCP in 3-5 days Follow up with cardiology to discuss ECHO Your ECHO has not been read yet, however this can be followed up as an outpatient. Prescriptions: Continued hydrocodone-acetaminophen 5-325 mg tablet 1 tab PO Q6H PRN (Reason: pain) Qty: 10 RF: 0 tamsulosin [Flomax] 0.4 mg capsule 0.4 mg PO DAILY Qty: 10 RF: 0 Stand-Alone Forms: [employer] [facility] [employer], [facility] Discharge Orders: Discharge Order (Routine); Ordered 10/12/18 Ordered By: Ramila Cox Admission Data Admit Date/Time: 10/12/18 04:05 Attending Provider: Ramila Cox Admit Provider: Cale Terrazas Primary Care Provider: Lauren Warren Other Providers: Thomas Joseph Jennifer Service: Surgical Services Other Interventions: Discharge Summary Assessment (RN) Last Done: 10/12/18 14:12 Pending Studies at Discharge: Yes Studies:: ECHO DC Date/Time DO NOT enter until pt leaves facility: 10/12/18 15:08
--- NOTE | 2018-10-12 21:59 | Operative Report ---
DATE OF OPERATION: 10/12/2018 SURGEON: David Perry MD SHAREPOINT MANAGER: None. PREOPERATIVE DIAGNOSIS: Right ureteral calculus. POSTOPERATIVE DIAGNOSIS: Right ureteral calculus. PROCEDURE PERFORMED: Cystoscopy, right ureteroscopy, right retrograde pyelogram, stone extraction. ANESTHESIA: General endotracheal. COMPLICATIONS: None. SPECIMENS: Ureteral calculus. DRAINS: None. ESTIMATED BLOOD LOSS: Minimal. CONDITION: Stable. INDICATIONS: Mr. Blakely is a 58-year-old gentleman who recently presented with right-sided flank pain, hydronephrosis and a distal ureteral calculus. After discussion of treatment options he elected for the above procedure. DESCRIPTION OF PROCEDURE: The patient was brought to the operative suite was identified, placed on the operating table in supine position. After induction of general anesthesia, placed in dorsal lithotomy position, genitalia prepped and draped in sterile fashion. Preop antibiotics were administered and a time out was performed. A rigid cystoscope was passed through the urethra and bladder. The urethra was normal. The prostate was enlarged with a median lobe. Bladder showed evidence of longstanding outlet obstruction. I turned my attention to the right ureteral orifice. This was intubated with an open ended catheter. Retrograde pyelogram was performed showing hydroureteronephrosis. A sensor wire was passed up into the renal pelvis and a rigid ureteroscope was passed alongside this wire. A second wire was used to guide the scope up the distal ureter. Once I got beyond the ureterovesical junction the stone was identified. Using a Barrett basket, the stone was extracted completely and sent for analysis. I passed the scope up a final time and a retrograde pyelogram was performed once again showing no other abnormalities. The ureter appeared open and there was adequate efflux of contrast. At the patient's request and due to the fact that I did not feel there was a significant amount of swelling I elected not to place a stent postoperatively. The patient tolerated the procedure well. Sponge and needle counts were correct. Taken to the PACU in stable condition. I attest to the content of the Intraoperative Record and any orders documented therein. Any exception s are noted below.
[2018-10-17 10:47] LABS: Component 2 DNR
== END 2018-10-12 15:08 | disposition home or self-care (01) | DRG 670 ==
LOC: ED 00:11 → SUATTDRO 04:05 → 3N 04:05